=== PATIENT | male | born 1975 | race African-American/Black ===

== ENCOUNTER 2021-09-26 18:53 | Emergency (ER) | payer OTHER, SELFPAY ==
[2021-09-26 19:07] VITALS: BP 131/81; PULSE 66; RESP 16; TEMP 37.1; O2SAT 100
[2021-09-26] MEDS: LIDOCAINE HCL 1% LOCAL INJ 20 ML VIAL (19:57)
[2021-09-26] MEDS: CELLULOSE OXIDIZED 2 x 14 INCH 1 PKT XX (20:22)
--- NOTE | 2021-09-26 20:22 | ED.WOUNDLAC ---
HPI - Wound/Laceration General Chief Complaint: Wound/Laceration Stated Complaint: laceration Time Seen by Provider: 09/26/21 19:11 History of Present Illness HPI narrative: 45-year-old male presents the emergency room with the complaints of a laceration to his left thumb. Patient states that he was cutting a piece of brisket when the knife got away from him and cut the base of his thumb. Patient Related Data Allergies Allergy/AdvReac Type Severity Reaction Status Date / Time No Known Allergies Allergy Unverified 08/28/18 15:10 Review of Systems Review of Systems: CONSTITUTIONAL: Denies fever, chills, or sweats. EYES: Denies visual changes, redness, or discharge. ENT: Denies rhinorrhea, congestion, sore throat, or otalgia. CARDIOVASCULAR: Denies chest pain, palpitations, or edema. RESPIRATORY: Denies cough or dyspnea. GASTROINTESTINAL: Denies abdominal pain, nausea, vomiting, or diarrhea. GENITOURINARY: Denies dysuria or hematuria. SKIN: Laceration to left thumb MUSCULOSKELETAL: Denies back pain, joint pain, or myalgia. NEUROLOGIC: Denies headache, numbness, dizziness, or weakness. PSYCHIATRIC: Denies anxiety or depression. Exam Narrative: GENERAL: Well-appearing, well-nourished, and in no acute distress. HEAD: Normocephalic, atraumatic. EYES: PERRLA and EOMI. CHEST: Clear to auscultation. No respiratory distress. No wheezes rales or rhonchi HEART: Regular rate and rhythm. No murmur heard. Normal peripheral pulses. ABDOMEN: Soft, nontender, nondistended, normal active bowel sounds. EXTREMITIES: Normal range of motion. No edema. SKIN: 2 cm linear laceration to the dorsal surface of the base of the left thumb, over the MCP joint; no joint laxity, neurovascular distally intact NEURO: No focal deficits. Alert and oriented x3. PSYCH: Normal mood and affect. Course Vital Signs Vital signs: Vital Signs Temperature 37.1 C 09/26/21 19:07 Pulse Rate 66 09/26/21 19:07 Respiratory Rate 16 09/26/21 19:07 Blood Pressure 131/81 09/26/21 19:07 Pulse Oximetry 100 09/26/21 19:07 Temperature 37.1 C 09/26/21 19:07 Pulse Rate 66 09/26/21 19:07 Respiratory Rate 16 09/26/21 19:07 Blood Pressure 131/81 09/26/21 19:07 Pulse Oximetry 100 09/26/21 19:07 Procedures Laceration Laceration 1: Date: 09/26/21 Time: 20:29 Site: upper extremity Side (If applicable): left Size (cm): 2 Description: linear Local Anesthetic: lidocaine 1% Amount of anesthesia used (mL): 3 Pre-repair: irrigated extensively ====== Skin Level ====== Skin layer closed with: nylon Size (cm): 4-0 Number of sutures: 4 ====== Subcutaneous Layer ====== ====== Muscle Layer ====== ====== Tendon Layer ====== Discharge Plan Discharge Clinical Impression: Laceration Patient Disposition: Home, Self-Care Condition: Stable Instructions: Antibiotic Form Follow-up/Referrals: Antwan Biggs MD [Physician] - PHYSICIAN,[employer] [Primary Care Provider] - Time of Disposition: 20:30
[2021-09-26] MEDS: TETANUS,DIPHTHERIA,AC PERTUSSIS ADULT (0.5 ML) BOOSTRIX IM (20:29)
== END 2021-09-26 20:44 | disposition home or self-care (01) ==
PROVIDERS: Emergency Provider Nurse Practitioner Family
DX: S61.012A Laceration without foreign body of left thumb without damage to nail, initial encounter (principal); Z23 Encounter for immunization; W26.0XXA Contact with knife, initial encounter; Y93.G1 Activity, food preparation and clean up
CPT/HCPCS: 12001; 90471; 90715; 99282

== ENCOUNTER 2021-10-03 08:41 | Emergency (ER) | payer OTHER, SELFPAY ==
[2021-10-03 09:00] VITALS: BP 147/92; PULSE 81; RESP 20; TEMP 36.6; O2SAT 100
--- NOTE | 2021-10-03 09:09 | ED.WOUNDLAC ---
HPI - Wound/Laceration General Chief Complaint: Wound/Laceration Stated Complaint: Suture Removal Time Seen by Provider: 10/03/21 09:05 Source: patient, RN notes reviewed and old records reviewed Mode of arrival: ambulatory Limitations: no limitations History of Present Illness HPI narrative: 45-year-old male who presents to [facility] with injury to thumb 7 days ago and received stitches at [place] emergency room. to his left thumb. Patient here today to have sutures removed as was instructed. Patient states that he cut his left anterior thumb region with a knife when he was cutting Brisket. Patient states that he had a lot of bleeding at time of injury and they applied some Surgicel over stitches. Wound soaked with saline and Surgicel removed prior to removal of sutures. Patient has no redness or any drainage noted from wound, edges appear approximated. Patient denies any fevers chills or sweats, he did receive Tetanus booster at time of laceration repair. Onset (ago): week(s) (1) Patient tetanus UTD: Yes Related Data Home Medications Medication Instructions Recorded Confirmed No Home Medications 10/03/21 10/03/21 Allergies Allergy/AdvReac Type Severity Reaction Status Date / Time No Known Allergies Allergy Unverified 10/03/21 09:19 Review of Systems Review of Systems: CONSTITUTIONAL: Denies fever, chills, or sweats. EYES: Denies visual changes, redness, or discharge. ENT: Denies rhinorrhea, congestion, sore throat, or otalgia. CARDIOVASCULAR: Denies chest pain, palpitations, or edema. RESPIRATORY: Denies cough or dyspnea. GASTROINTESTINAL: Denies abdominal pain, nausea, vomiting, or diarrhea. GENITOURINARY: Denies dysuria or hematuria. SKIN: Denies rash or itching, healing wound to anterior aspect of left mid thumb MUSCULOSKELETAL: Denies back pain, joint pain, or myalgia. NEUROLOGIC: Denies headache, numbness, or weakness. PSYCHIATRIC: Denies anxiety or depression. All systems reviewed & are unremarkable except as noted in HPI and below PMFSH Past Medical History Medical History (Updated 10/04/21 @ 00:00 by Edelmira Ortiz) Kidney stone Surgical History Surgical History (Updated 10/04/21 @ 08:03 by Suzanne Leonardo NP) Hx of cystoscopy removal of kidney stone Social History Social History (Updated 10/03/21 @ 13:05 by Suzanne Leonardo NP) Smoking status: Current every day smoker Alcohol intake: unknown Substance use: unknown Living arrangements: with family Gender identity (if verbalized by the patient): Male Comments At time of signature, agree with nursing past medical, surgical, social and family history. There is no relevant family history pertinent to the presenting complaint Exam Narrative: GENERAL: Well-appearing, well-nourished, and in no acute distress. HEAD: Normocephalic, atraumatic. EYES: PERRLA and EOMI. ENT: Nares clear, no rhinorrhea or epistaxis. Mucous membranes moist.TM's normal with good light reflex, throat pink with no lesions or exudates no swelling or tonsils noted. NECK: Supple.no lymphadenopathy CHEST: Clear to auscultation. No respiratory distress.SAO2 100% on room air HEART: Regular rate and rhythm. No murmur heard. Normal peripheral pulses. ABDOMEN: Soft, nontender, nondistended, normal active bowel sounds. EXTREMITIES: Normal range of motion. No edema. SKIN: Warm, dry, no rash.healing laceration of anterior aspect of left thumb mid region with 4 sutures intact, sutures removed, small amount of wound gaping noted steri strips applied.Patient has brisk capillary refill to thumb nail, strong left radial pulse, mobility and sensation intact to left thumb. NEURO: No focal deficits. Alert and oriented x3. Course Course Level of Care: Express Care Visit Vital Signs Vital signs: Vital Signs Temperature 36.6 C 10/03/21 09:00 Pulse Rate 81 10/03/21 09:00 Respiratory Rate 20 10/03/21 09:00 Blood Pressure 147/92 H 10/03/21 09:00 Pulse Oximetry 1
== END 2021-10-03 09:35 | disposition home or self-care (01) ==
PROVIDERS: Emergency Provider Registered Nurse
DX: S61.012D Laceration without foreign body of left thumb without damage to nail, subsequent encounter (principal); W26.0XXD Contact with knife, subsequent encounter; Z86.16 Personal history of COVID-19
CPT/HCPCS: 99211; G0463